=== PATIENT | male | born 1955 | race American Indian/Alaskan Native ===

== ENCOUNTER 2020-10-25 01:06 | Emergency (ER) | payer SELFPAY ==
[2020-10-25 02:15] VITALS: BP 130/88
== END 2020-10-25 07:16 | disposition left against medical advice (07) ==
LOC: ED 01:06
DX: Z04.1 Encounter for examination and observation following transport accident (principal); Z53.21 Procedure and treatment not carried out due to patient leaving prior to being seen by health care provider; V87.7XXA Person injured in collision between other specified motor vehicles (traffic), initial encounter; Y93.89 Activity, other specified; Y92.488 Other paved roadways as the place of occurrence of the external cause; Y99.8 Other external cause status